=== PATIENT | female | born 1980 | race Caucasian/White ===

== ENCOUNTER 2016-09-06 10:22 | Emergency (ER) | payer BC ==
[2016-09-06] MEDS ORDERED: METOCLOPRAMIDE 5 MG/ML 2 ML VIAL IVP STA (10:49)
[2016-09-06] MEDS ORDERED: KETOROLAC 30 MG/ML 1 ML VIAL IVP STA (10:49)
[2016-09-06] MEDS ORDERED: diphenhydrAMINE 50 MG/ML 1 ML VIAL IVP STA (10:49)
[2016-09-06] MEDS ORDERED: SODIUM CHLORIDE 0.9% 500 ML IV STA (10:49)
--- NOTE | 2016-09-06 11:05 | ED ---
General Adult HPI - General Chief complaint: Headache Stated complaint: headache Time Seen by Provider: 09/06/16 10:32 Source: patient, RN notes reviewed Mode of arrival: ambulatory Limitations: no limitations - History of Present Illness Initial comments: 36-year-old female presents emergency Department chief complaint headache. Patient states she's been having on and off headaches but increasing headaches. She states most recently last month far she's had a severe right-sided headache states it feels exactly behind her right eye and that she has a large amount of pressure. She states that she was at work and the headache was bothering somewhat she was having difficulty catching. She states there was a brief second where she felt that she was confused. Patient states that immediately resolved and she had no focal weakness. Denies any facial drooping. states that she is acting appropriate but she has been very stressed out recently. The last 3 weeks she's had 2 job changes, family problems and traveling. She does admit to this. She states that her symptoms get worse when she is stressed. - Related Data Home Medications Medication Instructions Recorded Confirmed No Known Home Medications [No 09/06/16 09/06/16 Known Home Medications] Allergies Allergy/AdvReac Type Severity Reaction Status Date / Time No Known Allergies Allergy Verified 09/06/16 10:53 Review of Systems ROS Statement: Those systems with pertinent positive or pertinent negative responses have been documented in the HPI. ROS Other: All systems not noted in ROS Statement are negative. Past Medical History Past Medical History: No Reported History History of Any Multi-Drug Resistant Organisms: None Reported Past Surgical History: No Surgical Hx Reported Past Psychological History: No Psychological Hx Reported Smoking Status: Never smoker Past Alcohol Use History: None Reported Past Drug Use History: None Reported General Exam Limitations: no limitations General appearance: alert, in no apparent distress Head exam: Present: atraumatic, normocephalic, normal inspection Eye exam: Present: normal appearance, PERRL, EOMI. Absent: scleral icterus, conjunctival injection, periorbital swelling ENT exam: Present: normal exam, normal oropharynx, mucous membranes moist, TM's normal bilaterally, normal external ear exam Neck exam: Present: normal inspection, full ROM. Absent: tenderness, meningismus, lymphadenopathy Respiratory exam: Present: normal lung sounds bilaterally. Absent: respiratory distress, wheezes, rales, rhonchi, stridor Extremities exam: Present: normal inspection, full ROM, normal capillary refill. Absent: tenderness, pedal edema, joint swelling, calf tenderness Neurological exam: Present: alert, oriented X3, CN II-XII intact, reflexes normal. Absent: motor sensory deficit Skin exam: Present: warm, dry, intact, normal color. Absent: rash Course Vital Signs 09/06/16 09/06/16 10:23 11:06 Temperature 98.3 F Pulse Rate 58 L Respiratory 18 Rate Blood Pressure 143/89 150/99 O2 Sat by Pulse 100 Oximetry EKG Findings - EKG Comments: EKG Findings:: EKG performed at 11:19 sinus bradycardia with a rate of 51 HI interval 138, QS duration 88, QT/QTC 486/447 Medical Decision Making - Medical Decision Making 36-year-old female presented for headache, dizziness not feeling well. Patient states she still much improved after medications. CT, lab work all within normal limits. Patient states she has no changes in her vision or any weakness at this time. Patient most likely had a migraine headache and will be discharged at this time.I did advise her if symptoms return of any nature she is to return to emergency department. Patient and family agree to plant this time. - Lab Data Result diagrams: 09/06/16 11:08 09/06/16 11:08 Lab Results 09/06/16 09/06/16 09/06/16 Range/Units 11:08 11:08 11:08 WBC 9.8 (3.8-10.6) k/uL RBC 4.48 (3.80-5.40) m/uL Hgb 14.5 (11.4-16.0) gm/dL Hct 43.5 (34.0-46.0) % MCV 97.2 (80.0-100.0) fL MCH 32.4 (25.0-35.0) pg MCHC 33.4 (31.0-37.0) g/dL RDW 12.4 (11.5-15.5) % Plt Count 320 (150-450) k/uL Neutrophils % 78 % Lymphocytes % 14 % Monocytes % 5 % Eosinophils % 1 % Basophils % 0 % Neutrophils # 7.6 (1.3-7.7) k/uL Lymphocytes # 1.4 (1.0-4.8) k/uL Monocytes # 0.5 (0-1.0) k/uL Eosinophils # 0.1 (0-0.7) k/uL Basophils # 0.0 (0-0.2) k/uL Sodium 140 (137-145) mmol/L Potassium 4.2 (3.5-5.1) mmol/L Chloride 105 (98-107) mmol/L Carbon Dioxide 27 (22-30) mmol/L Anion Gap 8 mmol/L BUN 11 (7-17) mg/dL Creatinine 0.82 (0.52-1.04) mg/dL Est GFR (MDRD) Af Amer >60 (>60 ml/min/1.73 sqM) Est GFR (MDRD) Non-Af >60 (>60 ml/min/1.73 sqM) Glucose 83 (74-99) mg/dL Calcium 9.6 (8.4-10.2) mg/dL Total Bilirubin 0.5 (0.2-1.3) mg/dL AST 34 (14-36) U/L ALT 24 (9-52) U/L Alkaline Phosphatase 42 (38-126) U/L Troponin I <0.012 (0.000-0.034) ng/mL Total Protein 7.4 (6.3-8.2) g/dL Albumin 4.4 (3.5-5.0) g/dL Disposition Clinical Impression: Migraine Disposition: HOME SELF-CARE Condition: Stable Instructions: Acute Headache (ED) Additional Instructions: Please return to the Emergency Department if symptoms worsen or any other concerns. Time of Disposition: 12:24
[2016-09-06 11:27] LABS: Basophils % (A) 0 %; CH 32.5; CHCM 33.6; Eosinophils # (A) 0.1 k/uL (0-0.7); Eosinophils % (A) 1 %; HCT 43.5 % (34.0-46.0); HDW 2.23; HGB 14.5 gm/dL (11.4-16.0); Luc # (Auto) 0.15; Luc % (Auto) 2; Lymphocytes # (A) 1.4 k/uL (1.0-4.8); Lymphocytes % (A) 14 %; MCH 32.4 pg (25.0-35.0); MCHC 33.4 g/dL (31.0-37.0); MCV 97.2 fL (80.0-100.0); Mean Platelet Volume 7.1; Monocytes # (A) 0.5 k/uL (0-1.0); Monocytes % (A) 5 %; Neutrophils # (A) 7.6 k/uL (1.3-7.7); Neutrophils % (A) 78 %; RBC 4.48 m/uL (3.80-5.40); RDW 12.4 % (11.5-15.5); WBC 9.8 k/uL (3.8-10.6); WBC (Perox) 9.64
[2016-09-06 11:38] LABS: ALT 24 U/L (9-52); AST 34 U/L (14-36); Alkaline Phosphatase 42 U/L (38-126); Anion Gap 8 mmol/L; Blood Urea Nitrogen 11 mg/dL (7-17); Calcium 9.6 mg/dL (8.4-10.2); Carbon Dioxide 27 mmol/L (22-30); Chloride 105 mmol/L (98-107); Glucose 83 mg/dL (74-99); Non-African American GFR(MDRD) >60 (>60 ml/min/1.73 sqM); Potassium 4.2 mmol/L (3.5-5.1); Sodium 140 mmol/L (137-145); Total Bilirubin 0.5 mg/dL (0.2-1.3); Total Protein 7.4 g/dL (6.3-8.2)
--- NOTE | 2016-09-06 12:06 | CT ---
EXAMINATION TYPE: CT brain wo con DATE OF EXAM: 09/06/2016 12:02 PM COMPARISON: NONE HISTORY: hinkle, dizziness, change in vision CT DLP: [address] of the brain was performed. The ventricles, basal cisterns and sulci overlying the cerebral convexities demonstrate a normal appe arance. There is no evidence for intracranial hemorrhage or sulcal effacement. No mass effects are seen. Osseous calvarium is intact. If symptoms persist consider MRI as clinically warranted. IMPRESSION: 1. No acute intracranial process is seen at this time.
[2016-09-06 12:34] VITALS: BP 113/78; PULSE 56; RESP 20; TEMP 98
== END 2016-09-06 12:33 | disposition home or self-care (01) ==
LOC: EC 10:22
DX: G43.909 Migraine, unspecified, not intractable, without status migrainosus (principal)
CPT/HCPCS: 36415; 93005; 80053; 84484; 85025; 70450; 99284; 96374; 96375 ×2; 96361; J1200; J2765; J1885

== ENCOUNTER → 2018-11-18 | Outpatient (CLI) | payer BC ==
[2018-11-18 12:00] LABS: Basophils % (A) 0 %; Eosinophils # (A) 0.1 k/uL (0-0.7); Eosinophils % (A) 2 %; HCT 41.1 % (34.0-46.0); HGB 13.5 gm/dL (11.4-16.0); Lymphocytes # (A) 1.1 k/uL (1.0-4.8); Lymphocytes % (A) 15 %; MCH 31.4 pg (25.0-35.0); MCHC 32.9 g/dL (31.0-37.0); MCV 95.5 fL (80.0-100.0); Monocytes # (A) 0.4 k/uL (0-1.0); Monocytes % (A) 5 %; Neutrophils # (A) 5.8 k/uL (1.3-7.7); Neutrophils % (A) 77 %; Platelet Count 311 k/uL (150-450); RDW 12.7 % (11.5-15.5); WBC 7.6 k/uL (3.8-10.6)
[2018-11-18 15:34] LABS: African American GFR (CKD) 93.4 (60.0-200.0); Albumin 4.4 g/dL (3.80-4.90); Anion Gap 8.4 mmol/L (4.00-12.00); BUN/Creat Ratio 14.44 Ratio (12.00-20.00); Calcium 9.4 mg/dL (8.7-10.3); Carbon Dioxide 25.6 mmol/L (21.6-31.8); Globulin 2.2 g/dL (1.6-3.3); Potassium 4.4 mmol/L (3.5-5.5); Total Bilirubin 0.3 mg/dL (0.3-1.2); Total Protein 6.6 g/dL (6.2-8.2)
[2018-11-18 15:39] LABS: Vitamin D 25 Hydroxy 32.8 ng/mL (30.0-100.0)
[2018-11-18 15:40] LABS: T4, Free (Free Thyroxine) 1.1 ng/dL (0.80-1.80)
[2018-11-18 23:34] LABS: Total Protein,CSF 34 mg/dL (12-60)
[2018-11-19 02:31] LABS: Appearance,CSF Clear; CSF Tube Number 4; CSF Tube Volume 2.8; Nucleated Cells, CSF 1 u/L (0-5); Red Blood Cell,CSF 1 u/L (0-10)
== END | disposition home or self-care (01) ==
LOC: LABWHC1 11:33
PROVIDERS: ATTEND Nurse Practitioner Acute Care
DX: R42 Dizziness and giddiness (principal); R90.89 Other abnormal findings on diagnostic imaging of central nervous system; G35 Multiple sclerosis; E55.9 Vitamin D deficiency, unspecified; R41.3 Other amnesia
CPT/HCPCS: 36415; 80053; 82040; 82042; 82306; 82607; 82784; 83873; 83916; 84157; 84207; 84439; 84443; 84481; 85025; 87801; 89050

== ENCOUNTER 2019-04-27 06:38 | Day surgery (SDC) | payer BC ==
[2019-04-17 15:38] VITALS: BMI 24.3
--- NOTE | 2019-04-26 14:10 | P.HPOB ---
History of Present Illness H&P Date: 04/26/19 Chief Complaint: Menorrhagia This patient is a pleasant 39 yr female with long standing menorrhagia who presents requesting an endometrial ablation. Evaluation has included a normal pelvic ultrasound. Her has had a vasectomy and she does not want anything hormonal. Review of Systems Genitourinary: Reports menorrhagia Menstruation: Reports menses 1-7 days, Reports period heavy Past Medical History Past Medical History: No Reported History History of Any Multi-Drug Resistant Organisms: None Reported Past Surgical History: No Surgical Hx Reported Past Anesthesia/Blood Transfusion Reactions: No Reported Reaction Past Psychological History: No Psychological Hx Reported Smoking Status: Former smoker Past Alcohol Use History: None Reported Past Drug Use History: None Reported Medications and Allergies Home Medications Medication Instructions Recorded Confirmed Type Cyanocobalamin (Vitamin B-12) 1,000 mcg PO DAILY 04/17/19 04/17/19 History [Vitamin B-12] Ergocalciferol [Vitamin D2] 50,000 unit PO Q7D 04/17/19 04/17/19 History Allergies Allergy/AdvReac Type Severity Reaction Status Date / Time No Known Allergies Allergy Verified 04/17/19 15:21 Exam - OBG Physical Exam Abdomen: bowel sounds normal, no diffuse tenderness, no bruit present, no guarding noted, no hepatomegaly, no splenomegaly, no mass Vulva: both: normal Vagina: normal moisture, no discharge Cervix: no lesion, no discharge Uterus: normal size, normal contour Adnexa: both: normal Results Transvaginal ultrasound on 04/06 showed a normal sized retroverted uterus with normal endometrial thickness. Assessment and Plan Assessment: This is a pleasant 39 yr female with longstanding menorrhagia who is requesting endometrial ablation. Plan is hysteroscopy, D&C, and Novasure endometrial ablation. [place] and I have discussed this surgery and risks: infection, bleeding, possible uterine perforation and/or thermal injury. All of her questions were answered and a written consent obtained. (1) Menorrhagia Status: Chronic Code(s): N92.0 - EXCESSIVE AND FREQUENT MENSTRUATION WITH REGULAR CYCLE SNOMED Code(s): 915986341
[~2019-04-27 06:38] MED LIST: LACTATED RINGERS 1,000 ML IV SCH; Pre Op ABX Message 1 EACH MISC MISCELLANE ONE
[2019-04-27] MEDS ORDERED: LIDOCAINE 1% 20 ML VIAL (10MG/ML) FOR IV START INTRADERMA ONE (06:55)
[2019-04-27] MEDS ORDERED: DEXAMETHASONE SOD PHOS (MDV) 100 MG/10 ML VIAL IVP ONE (07:05)
[2019-04-27] MEDS ORDERED: ONDANSETRON 4 MG/2 ML VIAL IVP ONE (07:05)
[2019-04-27] MEDS ORDERED: KETOROLAC 30 MG/ML 1 ML VIAL ONE (07:23)
[2019-04-27] MEDS ORDERED: PROPOFOL 10 MG/ML 20 ML VIAL IV ONE (07:23)
[2019-04-27] MEDS ORDERED: LIDOCAINE 1% INJ 10MG/ML (20 ML MDV) ONE (07:23)
[2019-04-27] MEDS ORDERED: MIDAZOLAM 2 MG/2 ML VIAL ONE (07:23)
[2019-04-27] MEDS ORDERED: fentaNYL (PF) 50 MCG/ML 2 ML AMP ONE (07:23)
--- NOTE | 2019-04-27 08:00 | P.OP ---
Date of Procedure: 04/27/19 Preoperative Diagnosis: Menorrhagia Postoperative Diagnosis: Same Procedure(s) Performed: #1: Hysteroscopy. #2: Dilation and curettage. #3: NovaSure endometrial ablation Anesthesia: MAC Surgeon: John Beaver Estimated Blood Loss (ml): 5 Urine output (ml): 25 Pathology: other (Uterine curettings) Condition: stable Disposition: PACU Indications for Procedure: Please see dictated H&P for intimate details of this patient's admission. Brief summary this is a pleasant 39-year-old 2 para 2 female with long- standing menorrhagia requesting endometrial ablation for treatment. Patient I have discussed the surgery and risks including risks of infection, bleeding, possible uterine perforation, and/or thermal injury. All the patient's questions are answered and a written consent is obtained. Operative Findings: This patient had a normal-appearing endometrial cavity Description of Procedure: This patient is taken to the operating room where she is laid in the supine position. She subsequently undergoes general mask anesthesia without incident. With an adequate level of anesthesia she's placed in dorsal lithotomy position. She has a vaginal perineal prep and drape. Examination under anesthesia shows a retroverted uterus of normal size. I first drain the bladder for 25 mL of clear urine. A weighted speculum was then placed in the posterior vagina. Anterior lip of the cervix was grabbed with an Allis clamp. I then gently sound the uterus to 9 cm retroverted. Gentle dilation is then done of the endocervix to allow the hysteroscope easily and the uterine cavity. Using saline solution hysteroscopy is performed uterine cavity is visualized and appears to be normal. With this done the hysteroscope was then removed. Cervix is dilated more to allow a small curette easily and the uterine cavity. A gentle but thorough 4 quadrant curettage is then done and this tissue sent off to pathology. With this completed, the NovaSure device is then opened it appears to be intact. The NovaSure device is set at a length of 6.0 cm and is seated in place and opens up to a width of 3.9 cm. It then passes the cavity integrity test is then enabled at 129th watt setting for 101 seconds. The NovaSure device is then removed and appears again to be intact. Hysteroscopy is performed again and the uterine cavity appears to be ablated up to the endocervix. All counts are correct 3. The weighted speculum and Allis clamp are removed. There are no complications. Patient is awakened from anesthesia and taken to the recovery room in satisfactory condition
[2019-04-27 08:09] VITALS: TEMP 97.6
[2019-04-27] MEDS ORDERED: HYDROmorphone 0.5 MG/0.5 ML SYRINGE IVP ONE (08:16)
[2019-04-27 08:48] VITALS: RESP 18
[2019-04-27 09:10] VITALS: PULSE 67
[2019-04-27 09:11] VITALS: BP 132/91
== END 2019-04-27 09:36 | disposition home or self-care (01) ==
LOC: OR 06:38
PROVIDERS: ATTEND Obstetrics & Gynecology
DX: N92.0 Excessive and frequent menstruation with regular cycle (principal); Z87.891 Personal history of nicotine dependence
CPT/HCPCS: 81025; 58563; J2250; J2405; J2001; J3010; J1885; J1100; J2704; J1170; 88305

== ENCOUNTER → 2019-07-14 | Outpatient (CLI) | payer BC | END | disposition home or self-care (01) | LOC: LABWHC1 12:37 | PROVIDERS: ATTEND Nurse Practitioner Family | DX: R68.89 Other general symptoms and signs (principal) | CPT/HCPCS: 87502 ==